=== PATIENT | female | born 1950 | race Caucasian/White ===

== ENCOUNTER → 2017-10-13 12:24 | Outpatient (CLI) | payer MEDICARE, BC ==
[2015-10-15 15:12] VITALS: BMI 28.7
[~2017-10-13 12:24] MED LIST: AMBIEN10 MG PO; FLAGYL 500500 MG/100 IV; FLAGYL500 MG PO; FLUTICASONE PRO16 GM NS; GLUCOVANCE 5/501 TAB PO; LEVAQUIN PREMI750 MG IV; LEVAQUIN750 MG PO; MEDROL DOSE PACK4 MG PO; METOPROLOL TART50 MG PO; SYNTHROID75 MCG PO; ZITHROMAX250 MG PO; ZOCOR40 MG PO; ZYRTEC10 M1 PO
== END | disposition home or self-care (01) ==
LOC: D.MAMMO 10:30
DX: Z12.31 Encounter for screening mammogram for malignant neoplasm of breast (principal)

== ENCOUNTER 2018-11-12 08:00 | Outpatient (CLI) | payer MEDICARE ==
[2015-10-15 15:12] VITALS: BMI 28.7
== END 2018-11-12 09:00 | disposition home or self-care (01) ==
LOC: D.MAMMO 08:00
DX: Z12.31 Encounter for screening mammogram for malignant neoplasm of breast (principal)